=== PATIENT | female | born 1940 | race Caucasian/White ===

== ENCOUNTER → 2016-09-27 | Outpatient (CLI) | payer MEDICARE | END | disposition home or self-care (01) | LOC: CFH 14:35 | PROVIDERS: ATTEND Internal Medicine | DX: Z12.31 Encounter for screening mammogram for malignant neoplasm of breast (principal) | CPT/HCPCS: G0202 ==

== ENCOUNTER → 2017-08-16 | Outpatient (CLI) | payer MEDICARE | LOC: CFH 10:44 | PROVIDERS: ATTEND Internal Medicine | DX: Z13.820 Encounter for screening for osteoporosis (principal); Z12.11 Encounter for screening for malignant neoplasm of colon; Z12.4 Encounter for screening for malignant neoplasm of cervix; E78.5 Hyperlipidemia, unspecified; F41.9 Anxiety disorder, unspecified; J45.909 Unspecified asthma, uncomplicated; M85.80 Other specified disorders of bone density and structure, unspecified site; Z78.0 Asymptomatic menopausal state | CPT/HCPCS: 77080 ==

== ENCOUNTER 2017-09-18 07:58 | Inpatient (IN) | payer MEDICARE ==
[~2017-09-18] VITALS: Ht 167.6 cm; Wt 67.5 kg
[2017-09-18] MEDS ORDERED: SODIUM CHLORIDE FLUSH 10ML SYR IVF ONE (08:30)
[2017-09-18] MEDS ORDERED: ALBUTEROL/IPRATROPIUM 2.5MG/0.5MG, 3 ML NPPB ONE (08:30)
[2017-09-18] MEDS ORDERED: ALBUTEROL/IPRATROPIUM 2.5MG/0.5MG, 3 ML ONE (08:31)
[2017-09-18 08:50] LABS: BASOPHILS # (AUTO) 0.01 x10^3/uL (0-0.1); BASOPHILS % (AUTO) 0 % (0-1); EOSINOPHILS # (AUTO) 0.19 x10^3/uL (0-0.4); EOSINOPHILS % (AUTO) 3 % (1-7); LYMPHOCYTES # (AUTO) 0.57 x10^3/uL (1-3.4); LYMPHOCYTES % (AUTO) 9 % (22-44); MD NO; MEAN CORPUSCULAR HEMOGLOBIN 31.1 pg (27.0-34.8); MEAN CORPUSCULAR HGB CONC 33.9 g/dL (32.4-35.8); MEAN CORPUSCULAR VOLUME 91.8 fL (80-100); MONOCYTES # (AUTO) 0.57 x10^3/uL (0.2-0.8); MONOCYTES % (AUTO) 9 % (2-9); NEUTROPHILS # (AUTO) 5.26 x10^3/uL (1.8-6.8); NEUTROPHILS % (AUTO) 80 % (42-75); PLATELET COUNT 247 x10^3/uL (130-400); RED BLOOD COUNT 4.84 x10^6/uL (3.82-5.3)
[2017-09-18 08:59] LABS: INTERNATIONAL NORMALIZED RATIO 0.92 (0.93-1.1); PROTHROMBIN TIME 9.6 Seconds (9.6-11.5)
[2017-09-18 09:02] LABS: ALANINE AMINOTRANSFERASE 43 U/L (12-78); ALBUMIN 3.6 g/dL (3.4-5.0); ANION GAP 9 mmol/L (5-15); CALCIUM 8.6 mg/dL (8.5-10.1); CHLORIDE 104 mmol/L (98-107); CREATININE 0.73 mg/dL (0.55-1.02)
[2017-09-18] MEDS ORDERED: CHOL2000 PO (09:05)
[2017-09-18] MEDS ORDERED: VERA120T5 PO (09:05)
[2017-09-18] MEDS ORDERED: FLUT1DIS IH (09:05)
[2017-09-18] MEDS ORDERED: LOVA10TA PO (09:05)
[2017-09-18] MEDS ORDERED: PARO20TA4 PO (09:05)
[2017-09-18] MEDS ORDERED: LOSA50TA6 PO (09:05)
[2017-09-18] MEDS ORDERED: FLUT9.9S16 NS (09:05)
[2017-09-18 09:07] LABS: ALKALINE PHOSPHATASE 60 U/L (45-117); BILIRUBIN,TOTAL 0.3 mg/dL (0.2-1.0); TOTAL PROTEIN 7.8 g/dL (6.4-8.2); TROPONIN I < 0.015 ng/mL (0.000-0.045)
[2017-09-18] MEDS ORDERED: SODIUM CHLORIDE 0.9% 1,000 ML IV SCH (10:59)
[2017-09-18] MEDS ORDERED: BISACODYL 10 MG SUPP PR PRN (11:00)
[2017-09-18] MEDS ORDERED: ASPIRIN 81 MG TABLET CHEW PO ONE (11:00)
[2017-09-18] MEDS ORDERED: ENALAPRILAT 1.25 MG/ML, 2ML IVPush PRN (11:00)
[2017-09-18] MEDS ORDERED: DOCUSATE 100 MG CAPSULE PO PRN (11:00)
[2017-09-18] MEDS ORDERED: ONDANSETRON 2MG/ML, 2ML IVPush PRN (11:00)
[2017-09-18] MEDS ORDERED: POLYETHYLENE GLYCOL 17 GM PACKET PO PRN (11:00)
[2017-09-18] MEDS ORDERED: ASPIRIN 81 MG TABLET CHEW ONE (11:03)
[2017-09-18] MEDS ORDERED: FLUTICASONE NASAL SPRAY 16GM NAS PRN (11:30)
[2017-09-18] MEDS ORDERED: (Fluticasone/Salmeterol** (Advair 100-50 Diskus**) 1 PUFF) HOMEMEDPO PRN (11:30)
[2017-09-18] MEDS ORDERED: ADVAIR MC SCH (12:00)
[2017-09-18 12:10] VITALS: BP 121/65
[2017-09-18] MEDS: ACETAMINOPHEN 325 MG TABLET PO PRN (12:26)
[2017-09-18] MEDS: ENOXAPARIN 40 MG/0.4 ML SQ SCH (12:32)
[2017-09-18 13:22] LABS: RAPID INFLUENZA A Negative (Negative)
[2017-09-18 13:24] LABS: RAPID INFLUENZA B POSITIVE (Negative)
[2017-09-18 13:56] LABS: TROPONIN I < 0.015 ng/mL (0.000-0.045)
[2017-09-18 15:13] VITALS: BP 109/57
[2017-09-18 19:34] LABS: TROPONIN I < 0.015 ng/mL (0.000-0.045)
[2017-09-18 19:50] VITALS: BP 127/61
[2017-09-18] MEDS: OSELTAMIVIR 75 MG CAPSULE PO SCH (20:42)
[2017-09-18] MEDS: LOVASTATIN 10 MG TABLET PO SCH (20:42)
[2017-09-19 02:13] VITALS: BP 147/68
[2017-09-19] MEDS: ACETAMINOPHEN 325 MG TABLET PO PRN ×2 (02:18→20:08)
[2017-09-19 04:57] LABS: BASOPHILS # (AUTO) 0.01 x10^3/uL (0-0.1); BASOPHILS % (AUTO) 0 % (0-1); EOSINOPHILS # (AUTO) 0.03 x10^3/uL (0-0.4); EOSINOPHILS % (AUTO) 1 % (1-7); LYMPHOCYTES % (AUTO) 20 % (22-44); MD NO; MEAN CORPUSCULAR HGB CONC 33.9 g/dL (32.4-35.8); MEAN CORPUSCULAR VOLUME 91.5 fL (80-100); MEAN PLATELET VOLUME 7.3 fL (7.4-10.4); MONOCYTES # (AUTO) 0.74 x10^3/uL (0.2-0.8); MONOCYTES % (AUTO) 19 % (2-9); NEUTROPHILS # (AUTO) 2.34 x10^3/uL (1.8-6.8); NEUTROPHILS % (AUTO) 60 % (42-75); PLATELET COUNT 220 x10^3/uL (130-400); RED BLOOD COUNT 4.19 x10^6/uL (3.82-5.3); RED CELL DISTRIBUTION WIDTH 12.9 % (9.6-15.2)
[2017-09-19 05:10] LABS: CHLORIDE 106 mmol/L (98-107)
[2017-09-19 05:17] LABS: ANION GAP 8 mmol/L (5-15); CALCIUM 8.4 mg/dL (8.5-10.1); CREATININE 0.54 mg/dL (0.55-1.02)
[2017-09-19 07:25] VITALS: BP 134/79
[2017-09-19] MEDS: PAROXETINE 20 MG TABLET PO SCH (08:09)
[2017-09-19] MEDS: LOSARTAN 50MG TABLET PO SCH (08:10)
[2017-09-19] MEDS: OSELTAMIVIR 75 MG CAPSULE PO SCH ×2 (08:10→20:08)
[2017-09-19] MEDS: CHOLECALCIFEROL 1,000 UNIT TABLET PO SCH (08:10)
[2017-09-19] MEDS: VERAPAMIL ER 240MG TABLET.ER PO SCH (08:10)
[2017-09-19] MEDS: ENOXAPARIN 40 MG/0.4 ML SQ SCH (11:00)
[2017-09-19 14:00] VITALS: BP 125/73
[2017-09-19] MEDS: LOVASTATIN 10 MG TABLET PO SCH (19:29)
[2017-09-19 20:00] VITALS: BP 131/64
[2017-09-20 01:56] VITALS: BP 147/65
[2017-09-20 07:52] VITALS: BP 135/94
[2017-09-20] MEDS: VERAPAMIL ER 240MG TABLET.ER PO SCH (07:57)
[2017-09-20] MEDS: OSELTAMIVIR 75 MG CAPSULE PO SCH ×2 (07:57→21:48)
[2017-09-20] MEDS: LOSARTAN 50MG TABLET PO SCH (07:57)
[2017-09-20] MEDS: CHOLECALCIFEROL 1,000 UNIT TABLET PO SCH (07:58)
[2017-09-20] MEDS: PAROXETINE 20 MG TABLET PO SCH (07:58)
[2017-09-20] MEDS: ENOXAPARIN 40 MG/0.4 ML SQ SCH (10:48)
[2017-09-20 13:41] VITALS: BP 127/65
[2017-09-20 20:21] VITALS: BP 138/75
[2017-09-20] MEDS: LOVASTATIN 10 MG TABLET PO SCH (21:48)
[2017-09-21 01:45] VITALS: BP 137/62
[2017-09-21 04:38] LABS: BASOPHILS # (AUTO) 0.02 x10^3/uL (0-0.1); BASOPHILS % (AUTO) 0 % (0-1); EOSINOPHILS # (AUTO) 0.11 x10^3/uL (0-0.4); EOSINOPHILS % (AUTO) 2 % (1-7); LYMPHOCYTES # (AUTO) 1.49 x10^3/uL (1-3.4); LYMPHOCYTES % (AUTO) 29 % (22-44); MD NO; MEAN CORPUSCULAR HEMOGLOBIN 30.8 pg (27.0-34.8); MEAN CORPUSCULAR HGB CONC 33.5 g/dL (32.4-35.8); MEAN CORPUSCULAR VOLUME 92.1 fL (80-100); MEAN PLATELET VOLUME 7.3 fL (7.4-10.4); MONOCYTES # (AUTO) 0.72 x10^3/uL (0.2-0.8); MONOCYTES % (AUTO) 14 % (2-9); NEUTROPHILS # (AUTO) 2.85 x10^3/uL (1.8-6.8); NEUTROPHILS % (AUTO) 55 % (42-75); PLATELET COUNT 211 x10^3/uL (130-400); RED BLOOD COUNT 4.28 x10^6/uL (3.82-5.3); RED CELL DISTRIBUTION WIDTH 12.1 % (9.6-15.2)
[2017-09-21 05:49] LABS: ANION GAP 9 mmol/L (5-15); CALCIUM 8.2 mg/dL (8.5-10.1); CHLORIDE 104 mmol/L (98-107); CREATININE 0.52 mg/dL (0.55-1.02)
[2017-09-21 07:48] VITALS: BP 153/69
[2017-09-21] MEDS ORDERED: OSEL75CA PO (08:09)
[2017-09-21] MEDS: VERAPAMIL ER 240MG TABLET.ER PO SCH (08:23)
[2017-09-21] MEDS: OSELTAMIVIR 75 MG CAPSULE PO SCH (08:24)
[2017-09-21] MEDS: PAROXETINE 20 MG TABLET PO SCH (08:24)
[2017-09-21] MEDS: CHOLECALCIFEROL 1,000 UNIT TABLET PO SCH (08:24)
[2017-09-21] MEDS: LOSARTAN 50MG TABLET PO SCH (08:24)
== END 2017-09-21 10:47 | disposition home or self-care (01) | DRG 194 ==
LOC: ED 09:39 → EDIP 10:32 → 3NE 11:35
PROVIDERS: ADMIT Family Medicine; ATTEND Family Medicine
DX: J10.1 Influenza due to other identified influenza virus with other respiratory manifestations (principal); E87.1 Hypo-osmolality and hyponatremia; B02.9 Zoster without complications; I11.9 Hypertensive heart disease without heart failure; J45.901 Unspecified asthma with (acute) exacerbation; J98.11 Atelectasis; E78.5 Hyperlipidemia, unspecified; F32.9 Major depressive disorder, single episode, unspecified; Z66 Do not resuscitate; Z87.891 Personal history of nicotine dependence; Z88.2 Allergy status to sulfonamides
CPT/HCPCS: 36415; 71045; 71275; 80048; 80053; 83605; 83880; 84484; 85025; 85610; 85730; 87040; 87400; 93005; 93306; 94640; 99285; J7620; J7030

== ENCOUNTER → 2017-10-09 | Outpatient (CLI) | payer MEDICARE ==
[~2017-10-09] MED LIST: CHOL2000 PO; FLUT1DIS IH; FLUT9.9S16 NS; LOSA50TA6 PO; LOVA10TA PO; OSEL75CA PO; PARO20TA4 PO; VERA120T5 PO
== END | disposition home or self-care (01) ==
LOC: CFH 13:16
PROVIDERS: ATTEND Internal Medicine
DX: Z12.31 Encounter for screening mammogram for malignant neoplasm of breast (principal)
CPT/HCPCS: 77067

== ENCOUNTER 2019-01-08 10:12 | Outpatient (CLI) | payer MEDICARE ==
[~2019-01-08 10:12] MED LIST changes: +LOSA50TA14 PO; -LOSA50TA6 PO; -OSEL75CA PO; +OSEL75CA26 PO
== END 2019-01-08 23:59 | disposition home or self-care (01) ==
LOC: CFH 10:12
PROVIDERS: ATTEND Internal Medicine
DX: Z12.31 Encounter for screening mammogram for malignant neoplasm of breast (principal)
CPT/HCPCS: 77067